=== PATIENT | female | born 1955 | race Hispanic/Latino ===

== ENCOUNTER 2017-09-19 14:05 | Emergency (ER) | payer BC, OTHER ==
[~2017-09-19] VITALS: Ht 162.6 cm; Wt 74.8 kg
[~2017-09-19 14:05] MED LIST: ALDACTONE50 MG PO; LEVEMIR 3M100 UNITS/ SC; NADOLOL20 MG PO; ONGLYZA5 MG PO; PANTOPRAZOLE SO40 MG PO
[2017-09-19] MEDS ORDERED: PANTOPRAZOLE 40 MG 10ML VIAL IV STA (14:12)
[2017-09-19] MEDS ORDERED: LACTULOSE SYRUP 20 GM/30 ML UDC PO ONE (14:15)
[2017-09-19] MEDS ORDERED: NEXIUM20 MG PO (14:18)
[2017-09-19] MEDS ORDERED: MIDODRINE HCL2.5 MG PO (14:18)
[2017-09-19] MEDS ORDERED: FLUCONAZOLE200 MG PO (14:18)
[2017-09-19] MEDS ORDERED: HYDROCORTISONE10 MG PO (14:18)
[2017-09-19] MEDS ORDERED: LACTULOSE20 GM/30 M PO (14:18)
[2017-09-19] MEDS ORDERED: TORSEMIDE10 MG PO (14:18)
[2017-09-19] MEDS ORDERED: XIFAXAN550 MG PO (14:18)
[2017-09-19] MEDS ORDERED: SPIRONOLACTONE25 MG PO (14:18)
[2017-09-19 14:34] LABS: BASOPHILS % 0.5 % (0.0-1.0); EOSINOPHILS # (AUTO) 0.1 (0.0-0.4); EOSINOPHILS % 1.2 % (0.0-6.0); HEMATOCRIT 25.4 % (34.2-44.1); LYMPHOCYTES # (AUTO) 0.8 (1.0-3.2); MEAN CORPUSCULAR HEMOGLOBIN 35.3 pg (28-32); MEAN CORPUSCULAR HGB CONC 35.4 g/dL (31-35); MEAN CORPUSCULAR VOLUME 99.6 fL (81-99); MONOCYTES # (AUTO) 0.6 (0.2-0.8); MONOCYTES % 13.7 % (4.4-11.3); NEUTROPHILS # (AUTO) 2.7 (2.1-6.9); NEUTROPHILS % 64.4 % (38.7-80.0); RED BLOOD COUNT 2.55 x10e6/uL (3.6-5.1)
[2017-09-19 14:38] LABS: PLATELET COUNT 26 x10e3/uL (140-360)
[2017-09-19 14:45] LABS: INR 2.06; PROTHROMBIN TIME 21.8 seconds (11.9-14.5)
[2017-09-19 14:46] LABS: PARTIAL THROMBOPLASTIN TIME 34.9 seconds (23.8-35.5)
[2017-09-19 14:52] LABS: ALBUMIN 2.9 g/dL (3.5-5.0); ALBUMIN/GLOBULIN RATIO 0.8 (0.8-2.0); ANION GAP 18.9 mmol/L (8-16); CALCIUM 9.2 mg/dL (8.4-10.2); CREATININE, SERUM 2.52 mg/dL (0.57-1.11); POTASSIUM 3.9 mmol/L (3.5-5.1)
[2017-09-19 15:40] LABS: BILIRUBIN,URINE NEGATIVE (NEGATIVE); CLARITY,URINE CLEAR (CLEAR); COLOR,URINE YELLOW (YELLOW); KETONES,URINE NEGATIVE (NEGATIVE); LEUKOCYTE ESTERASE ,URINE NEGATIVE (NEGATIVE); NITRITE,URINE NEGATIVE (NEGATIVE); PROTEIN,URINE DIPSTICK NEGATIVE (NEGATIVE); URINE UROBILINOGEN 0.2 mg/dL (0.2 - 1)
[2017-09-19 15:53] LABS: BACTERIA,URINE FEW /HPF; EPITHELIAL CELLS,URINE FEW /LPF; RBC,URINE >50 /HPF (0-5)
[2017-09-19 16:03] LABS: HYPOCHROMASIA MODERATE; PLATELET ESTIMATE MARKEDLY DECREASED; PLATELET MORPHOLOGY COMMENT NORMAL; RBC MORPHOLOGY COMMENT NORMAL
--- NOTE | 2017-09-19 16:16 | Diagnostic Imaging Report ---
EXAMINATION: Head and face CT without contrast. HISTORY: Altered mental status. Encephalopathy, confusion, low platelets COMPARISON: None. TECHNIQUE: Multidetector axial images were obtained without contrast from the foramen magnum to the vertex and over the face. The images were reconstructed using brain and bone algorithms. Thin section brain images were reformatted into coronal and sagittal planes. Head CT findings: Skull: No lytic or blastic lesions. No fractures. Parenchyma: Normal. No mass, hemorrhage or CT evidence of acute vascular insult. Brain volume: Normal for age. Ventricles: No hydrocephalus or displacement. Arteries: No density suggestive of thrombus. Dural sinuses: No abnormal density. Extra-axial spaces: No abnormal density. Foramen magnum: No mass, Chiari malformation, or basilar invagination. Sella: No obvious mass. Paranasal/mastoid sinuses: Imaged portions unremarkable. Face CT findings: Bones: Unremarkable. Facial soft tissues: Unremarkable. Orbits contents: Unremarkable. Paranasal sinuses and drainage pathways: Opacification of the right anterior ethmoidal and partial opacification of the right maxillary sinus and partially the right ostiomeatal unit at the level of the infundibulum and hiatus semilunaris. Otherwise clear paranasal sinuses and drainage pathways. Nasal septum and nasal cavities: Midline. Anatomic variations: No significant anatomic variations. Teeth: Multiple missing teeth, no acute abnormalities. Cervical spine: Partially visualized Spondylosis may be at C4-C5 and C5-C6. IMPRESSION: 1. No intracranial hemorrhage, mass or acute cortical infarcts. 2. No acute facial fractures or soft tissues abnormalities. 3. Right ethmoidal and maxillary sinusitis. Signed by: Dr. Orin Almeida M.D. on 09/19/2017 4:13 PM
[2017-09-19 19:34] VITALS: BP 107/76
== END 2017-09-19 20:15 | disposition other institution (70) ==
LOC: ER 14:15
DX: R53.1 Weakness (principal); R41.0 Disorientation, unspecified; I60.9 Nontraumatic subarachnoid hemorrhage, unspecified; K72.90 Hepatic failure, unspecified without coma; K75.81 Nonalcoholic steatohepatitis (NASH); R18.8 Other ascites; K92.1 Melena; N28.9 Disorder of kidney and ureter, unspecified; R26.2 Difficulty in walking, not elsewhere classified; I10 Essential (primary) hypertension; D64.9 Anemia, unspecified
CPT/HCPCS: 36415; 51700; 70450; 70486; 80053; 81001; 82140; 85025; 85610; 85730; 87086; 93005; 99285